=== PATIENT | female | born 1950 | race Caucasian/White ===

== ENCOUNTER 2018-03-29 12:11 | Emergency (ER) | payer OTHER ==
[~2018-03-29] VITALS: Ht 162.6 cm; Wt 104.3 kg
[2018-03-29] MEDS ORDERED: GLUCOPHAGE XR750 MG PO (12:31)
[2018-03-29] MEDS ORDERED: SIMVASTATIN10 MG PO (12:31)
[2018-03-29] MEDS ORDERED: NAPR500T14 PO (15:39)
== END 2018-03-29 15:48 | disposition home or self-care (01) ==
LOC: ER 12:11
DX: M25.562 Pain in left knee (principal)